=== PATIENT | female | born 1985 | race Caucasian/White ===

== ENCOUNTER 2017-08-13 00:59 | Outpatient (CLI) | payer OTHER | END 2017-08-13 01:00 | disposition EMS.NT | LOC: EMS 00:59 | PROVIDERS: ATTEND Surgery | DX: R11.0 Nausea (principal); R26.81 Unsteadiness on feet ==

== ENCOUNTER 2017-08-13 01:43 | Emergency (ER) | payer OTHER ==
[2017-08-13] MEDS ORDERED: LORazepam 0.5 MG TABLET PO STA (01:55)
[2017-08-13] MEDS ORDERED: ONDANSETRON ODT 4 MG TABLET TL STA (01:55)
--- NOTE | 2017-08-13 02:00 | ED Physician Documentation ---
History of Present Illness - Stated complaint Stated Complaint: SHAKING,NAUSEA - Chief complaint Chief Complaint: MHE - History obtained from History obtained from: Patient, Friend - History of Present Illness Timing: How many hours ago (1) Pain level max: 0 Pain level now: 0 Improved by: nothing Worsened by: nothing - Additonal information Additional information: is here from [place], [place] for a [employer] festival. Wong was drinking with friends and was back trying to go to sleep when she felt very panicked, began shaking, hands spasming. Did not lose consciousness. No post ictal period. is on cymbalta for depression. Did have a stressful life event earlier this week. Review of Systems Ten Systems: 10 systems reviewed and negative Constitutional: denies: Fever, Chills Ears: denies: Ear pain Nose: denies: Rhinorrhea / runny nose, Congestion Throat: denies: Sore throat Cardiac: denies: Chest pain / pressure Respiratory: denies: Cough GI: denies: Abdominal Pain, Nausea, Vomiting, Diarrhea Skin: denies: Rash Musculoskeletal: denies: Neck pain, Back pain Neurologic: denies: Focal weakness, Numbness, Headache Psychiatric: denies: Suicidal, Homicidal PD PAST MEDICAL HISTORY - Past Medical History Past Medical History: Yes Psych: Depression - Past Surgical History Past Surgical History: Yes HEENT: Tonsil/Adenoidectomy - Present Medications Home Medications: Ambulatory Orders Medication Instructions Recorded Confirmed Cholecalciferol (Vitamin D3) 08/13/17 [Vitamin D3] Citalopram [CeleXA] 20 mg PO DAILY 08/13/17 08/13/17 LORazepam [Ativan] 0.5 mg PO Q6H PRN #7 tablet 08/13/17 - Allergies Allergies/Adverse Reactions: Allergies Allergy/AdvReac Type Severity Reaction Status Date / Time No Known Drug Allergies Allergy Verified 08/13/17 01:54 - Living Situation Living Arrangement: reports: At home - Social History Does the pt smoke?: No Does the pt drink ETOH?: Yes Does the pt have substance abuse?: No - Family History Family history: reports: Non contributory PD ED PE NORMAL - Vitals Vital signs reviewed: Yes - General General: Alert and oriented X 3, No acute distress, Well developed/nourished - HEENT HEENT: PERRL, Moist mucous membranes - Neck Neck: Supple, no meningeal sign - Cardiac Cardiac: RRR, Strong equal pulses - Respiratory Respiratory: No respiratory distress, Clear bilaterally - Abdomen Abdomen: Soft, Non tender, Non distended - Derm Derm: Warm and dry, No rash - Extremities Extremities: No edema, No calf tenderness / cord - Neuro Neuro: Alert and oriented X 3, deputy [employer] 2-12 intact, No motor deficit, No sensory deficit, Normal speech - Psych Psych: Normal mood, Normal affect Results - Vitals Vitals: Vital Signs - 24 hr 08/13/17 08/13/17 01:51 03:04 Temperature 36.3 C L Heart Rate 79 70 Respiratory 19 16 Rate Blood Pressure 145/86 H 124/80 O2 Saturation 100 97 Oxygen O2 Source Room air - Labs Labs: Laboratory Tests 08/13/17 02:05 POC Whole Bld Glucose 157 H PD MEDICAL DECISION MAKING - ED course Complexity details: reviewed results, re-evaluated patient, considered differential, d/w patient ED course: Patient is a 32-year-old female who appears to have had a panic attack tonight. Symptoms resolved with Ativan here. Feels much better. She did have some residual nausea which responded well to Zofran and Phenergan. Likely that this is from the alcohol she consumed earlier in the night. Tolerating p.o. without difficulty here. No chest pain, no shortness of breath, no evidence of pulmonary embolus or acute coronary syndrome. Patient denies any possibility of . Is not breast-feeding. Patient counseled regarding signs and symptoms for which I believe and urgent re-evaluation would be necessary. Patient with good understanding of and agreement to plan and is comfortable going home at this time This document was made in part using voice recognition software. While efforts are made to proofread this document, sound alike and grammatical errors may occur. Departure - Departure Disposition: 01 Home, Self Care Clinical Impression: Anxiety Condition: Good Instructions: ED Panic Attack Follow-Up: your,doctor in 1 week [Other] Prescriptions: LORazepam [Ativan] 0.5 mg PO Q6H PRN #7 tablet PRN Reason: Anxiety Comments: Return if you worsen. Use the Ativan as needed for anxiety. Do not drive or operate heavy machinery while taking the Ativan. Do not consume with alcohol. Your blood pressure was elevated today on check in to the emergency department. This does not mean that you have hypertension, it is a common phenomenon to check into the emergency department and have elevated blood pressure. I recommend that you see your primary care physician within the week to have it rechecked when you're feeling better. Discharge Date/Time: 08/13/17 03:05
[2017-08-13] MEDS ORDERED: LORazepam 0.5 MG TABLET ONE (02:02)
[2017-08-13] MEDS ORDERED: ONDANSETRON ODT 4 MG TABLET ONE (02:02)
[2017-08-13] MEDS ORDERED: PROMETHAZINE 25 MG TABLET PO STA (02:49)
[2017-08-13] MEDS ORDERED: PROMETHAZINE 25 MG TABLET ONE (02:56)
[2017-08-13 03:04] VITALS: BP 124/80
== END 2017-08-13 03:05 | disposition home or self-care (01) ==
LOC: ED 01:43
DX: F41.9 Anxiety disorder, unspecified (principal); R11.0 Nausea; R03.0 Elevated blood-pressure reading, without diagnosis of hypertension; F32.9 Major depressive disorder, single episode, unspecified
CPT/HCPCS: 99283; A9270; Q0162; Q0169